=== PATIENT | male | born 2000 | race Caucasian/White ===

== ENCOUNTER 2018-09-23 18:12 | Emergency (ER) | payer OTHER ==
[~2018-09-23] VITALS: Ht 165.1 cm; Wt 104.3 kg
[2018-09-23 18:18] VITALS: Ht 165.1 cm; Wt 104.3 kg
[2018-09-23 19:05] LABS: BASOPHIL % 0.5 % (0-2); PLATELET COUNT 220 x10^3mcL (130-400); RED CELL DISTRIBUTION WIDTH 13.3 % (11.5-14.5)
[2018-09-23 19:12] LABS: CALCIUM 10.1 mg/dL (8.5-10.1); CARBON DIOXIDE 24.2 mmol/L (21-32); CHLORIDE SERUM 101 mmol/L (98-107); CREATININE SERUM 1.1 mg/dL (0.7-1.3); GFR1 > 60 mL/min; GLUCOSE SERUM 144 mg/dL (74-106); POTASSIUM SERUM 5.1 mmol/L (3.5-5.1); SODIUM SERUM 138 mmol/L (136-145)
[2018-09-23 19:21] LABS: ALBUMIN 4.1 g/dL (3.4-5.0); ALKALINE PHOSPHATASE 91 U/L (46-116); ALT/SGPT 62 U/L (16-63); AST/SGOT 28 U/L (15-37); BILIRUBIN TOTAL 0.2 mg/dL (0.20-1.00); TOTAL PROTEIN, SERUM 7.6 g/dL (6.4-8.2)
[2018-09-23 19:37] VITALS: BP 123/76
== END 2018-09-23 19:37 | disposition home or self-care (01) ==
LOC: ED 18:12
PROVIDERS: Emergency Medicine
DX: R56.9 Unspecified convulsions (principal)
CPT/HCPCS: 82962; G0480; J7030